=== PATIENT | female | born 1965 | race Caucasian/White ===

== ENCOUNTER 2021-12-10 16:12 | Emergency (ER) | payer OTHER, SELFPAY ==
[2021-12-10 16:16] VITALS: BP 162/82; PULSE 117; RESP 16; TEMP 36.8; O2SAT 98
--- NOTE | 2021-12-10 16:49 | ED.GENADUL_ITS ---
Discharge Plan Disposition Patient Disposition: HOME Condition: Stable Discharge Details Clinical Impression: Mastitis of right breast unrelated to of Primary Care Provider: Unknown,Unknown ED Provider: Fatou Gan Home Meds and New Rx's Prescriptions: New clindamycin HCl 150 mg capsule 450 mg PO TID 7 Days Qty: 63 0RF No Action amoxicillin-pot clavulanate [Augmentin] 875-125 mg Tablet 1 tab PO BID Fish Oil Capsule 1 cap PO DAILY Metamucil 3.4 gram/5.4 gram Powder PO PRN Discharge Instructions Instructions: Mastitis (ED) Additional Instructions: Apply warm compresses approximately 3 times daily. Take the antibiotics as directed. Finish the Augmentin you were previously prescribed. Please take the antibiotics with yogurt or probiotic. Please discuss additional imaging and testing with your [employer] [facility]. Please call the phone number listed on the ultrasound order to schedule an appointment. Follow up with primary care provider in 3-5 days. Return to ED sooner if any worsening or concerns. Increase oral fluids. Please take Tylenol or Ibuprofen with food every 4-6 hours as needed for pain and swelling. Medical Decision Making 56-year-old female presents to the ER with a chief complaint of her right breast infection. Patient noticed symptoms which began a week ago Wednesday. She was seen at urgent care on and was prescribed Augmentin. She has approximately 2 days left of the antibiotic. Per patient report symptoms have worsened over the last 2 days. Redness has spread. She denies any other associated symptoms. She is allergic to sulfa and beet pollen, past medical history includes mastitis of the same breast. Surgical history includes cholecystectomy tonsillectomy. Area of erythema marked erythematous approximately 15 cm x 9 cm. There is a couple areas of fluctuance patient is requesting to be drained. I am hesitant to do an incision and drainage or needle aspiration due to the swelling which is around the areolar area. Outpatient ultrasound ordered to be done within 48 hours with follow-up with [employer] or PCP. Will instruct patient to continue the Augmentin and to give clindamycin 450 mg here in the department. ReSound POCUS exam attempted to determine fluid collection. No obvious fluid collection noted. I did discuss risks and benefits of I&D, at this time after shared decision-making patient will call her [employer] and follow-up as directed. Patient placed on clindamycin 450 mg 3 times daily discussed home care, verbalized understanding. Medical Records Medical records reviewed: Yes I reviewed the patient's medical records. HPI General Mode of arrival: ambulatory . Date/Time Provider Initiated Documentation: 12/10/21 16:15 . Limitations to Documentation: no limitations . Information obtained by: patient, RN notes reviewed and old records reviewed . HPI Narrative: 56-year-old female presents to the ER with a chief complaint of her right breast infection. Patient noticed symptoms which began a week ago Wednesday. She was seen at urgent care on and was prescribed Augmentin. She has approximately 2 days left of the antibiotic. Per patient report symptoms have worsened over the last 2 days. Redness has spread. She denies any other associated symptoms. She is allergic to sulfa and beet pollen, past medical history includes mastitis of the same breast. Surgical history includes cholecystectomy tonsillectomy. Related Data Home Medications Medication Instructions Recorded Confirmed amoxicillin 875 mg-potassium 1 tab PO BID 12/10/21 12/10/21 clavulanate 125 mg tablet clindamycin HCl 150 mg capsule 450 mg PO TID 7 days #63 caps 12/10/21 omega-3 fatty acids 1 cap PO DAILY 12/10/21 12/10/21 psyllium husk 3.4 gram/5.4 gram PO PRN 12/10/21 oral powder (Metamucil) Previous Rx's Medication Instructions Recorded clindamycin HCl 150 mg capsule 450 mg PO TID 7 days #63 caps 12/10/21 Allergies Allergy/AdvReac Type Severity Reaction Status Date / Time bee pollen Allergy Unverified 12/10/21 16:21 Sulfa (Sulfonamide AdvReac Unverified 12/10/21 16:21 Antibiotics) General Stated Complaint: Cellulitis ASHWIN: 4 Review of Systems All systems reviewed & are unremarkable except as noted in HPI and below Constitutional Constitutional: Denies body ache(s) (reports joint pain from arthritis), Denies chills, Denies fever(s), Denies malaise and Denies night sweats Cardiovascular Cardiovascular: Denies chest pain and Denies dyspnea Respiratory Respiratory: Denies dyspnea Gastrointestinal Gastrointestinal: Denies abdominal pain, Denies diarrhea, Denies nausea and Denies vomiting Genitourinary Genitourinary: Reports nipple discharge Integumentary/Breasts Skin/Breast: Reports breast skin changes, Reports breast pain, Reports pruritus, Reports new lesions, Reports nipple discharge, Reports erythema and Reports skin pain PFSH All Active Problems (Updated 12/10/21 @ 18:53 by Fatou Gan NP) Mastitis of right breast unrelated to of (Acute) Social History Smoking/Tobacco Use Status: Current every day Tobacco Type: cigarettes Smoking risk assessment performed?: Yes Alcohol Intake: former Drug use: Occasionally Substance use type: marijuana Do you feel safe at home: Yes Do you feel safe in your relationship?: Yes Exam Chest Breast inspection: abnormal inspection of the breast (Multiple areas of possible fluctuant, erythema tenderness) right erythema, normal nipple, nipple discharge and retraction skin dimpling and abnormal contours Breast palpation: normal palpation of the axillae Chest/axillae images: 1. Approximately 10 cm in length by 7 cm in width area of erythema warmth tenderness. There is a area of skin dimpling approximately 3:00 from the areola. Patient does report nipple discharge none noted on my exam. No palpable lymphadenopathy to the axilla. Skin General skin exam: no rashes or lesions noted Lesions: no lesions Rashes: no rashes Course Vital Signs Vital signs: Vital Signs Temperature 36.8 C 12/10/21 16:16 Pulse 117 H 12/10/21 16:16 Respiratory Rate 16 12/10/21 16:16 Blood Pressure 162/82 H 12/10/21 16:16 Pulse Oximetry 98 12/10/21 16:16 Temperature 36.8 C 12/10/21 16:16 Temperature Source Skin 12/10/21 16:16 Pulse 117 H 12/10/21 16:16 Respiratory Rate 16 12/10/21 16:16 Respiratory Effort 12/10/21 16:23 Blood Pressure 162/82 H 12/10/21 16:16 Blood Pressure Position Sitting 12/10/21 16:16 Pulse Oximetry 98 12/10/21 16:16 Oxygen Delivery Method Room Air 12/10/21 16:16 Oxygen Flow Rate 0 12/10/21 16:16 Pain Level 0 12/10/21 16:16
[2021-12-10] MEDS: Clindamycin 150 MG CAP 450 MG PO (17:09)
[2021-12-10] MEDS: Clindamycin 150 MG CAP, 12 CAPS/BTL 450 MG PO (19:08)
== END 2021-12-10 18:58 | disposition home or self-care (01) ==
PROVIDERS: Emergency Provider Registered Nurse Emergency
DX: N61.0 Mastitis without abscess (principal)
CPT/HCPCS: 99283

== ENCOUNTER 2021-12-19 12:37 | Outpatient (REF) | payer OTHER, SELFPAY | END 2021-12-19 12:38 | disposition home or self-care (01) | LOC: LBN 12:37 | PROVIDERS: Visit Provider Physical Therapy Assistant | DX: N61.1 Abscess of the breast and nipple (principal) | CPT/HCPCS: 87070; 87205 ==

== ENCOUNTER → 2022-04-10 00:39 | Outpatient (CLI) | payer OTHER, SELFPAY ==
--- NOTE | 2022-04-10 07:45 | DI.MAMMO_ITS ---
Exam(s) US BREAST RT COMPLETE MG MAMMO SCREENING 60 MIN DUR EXAM: MG MAMMO SCREENING 60 MIN DUR and U/S breast RT complete CLINICAL HISTORY: breast cancer screening,Z12.39,H/O ABSCESSES,. TECHNIQUE: Craniocaudal and mediolateral oblique Full Field Digital Mammography views with Computer Aided Diagnosis followed by Tomosynthesis and right breast ultrasound. COMPARISON: Comparison is made with prior examinations. FINDINGS: Mammography/Tomosynthesis: Masses/Architectural Distortion: None seen. Microcalcifictions: No suspicious pleomorphic-type are seen. Skin Thickening/Nipple Retraction: None. Complete right breast US: Echotexture: Normal appearance of the glandular tissue. Shadowing: No suspicious foci. Cyst: None. Solid lesions: There is a benign-appearing lymph node in the right axilla measuring 3.5 cm. No sonog raphically suspicious solid masses are seen. Ductal dilation: None. IMPRESSION: 1. No evidence of malignancy is noted. 2. Unless there is more urgent need, follow-up screening mammography is recommended, as per [employer] guidelines. 3. The findings were discussed with the patient on the date of the examination. BI-RADS Category 1 - Negative Breast Density - Category C - Heterogeneously dense Breast density Category C or D implies that the patient has dense breast tissue. Dense breast tissue can make it harder to find cancer on a mammogram. Dense breast tissue is also associated with an incr eased risk of breast cancer. This information about the result of the mammogram report was provided to the patient to raise their awareness. Use this report when you speak with the patient about their risks for breast cancer, which includes their family history. At that time, you may recommend additional screening tests (Ultrasoun d or MRI) as these tests may add significant information. A negative radiographic report should not delay biopsy if a dominant or clinically suspicious mass is present. Up to ten percent of cancers are not identified on mammography. A negative report may reinforce clinical impression. Adenosis and dense breasts may obscure an underlying neoplasm. False positive reports average 6 to 10%. Patient will receive a letter notifying them of these results.
== END ==
PROVIDERS: Visit Provider Surgery
DX: N61.1 Abscess of the breast and nipple (principal); Z12.31 Encounter for screening mammogram for malignant neoplasm of breast
CPT/HCPCS: 76642; 77063; 77067

== ENCOUNTER 2022-04-15 04:07 | Outpatient (CLI) | payer OTHER, SELFPAY ==
[2022-04-15 10:14] LABS: Abs Immature Grans 0.02 10^3/uL (0.0-0.06); Absolute Basophil Count 0.12 10^3/uL (0.0-0.2); Absolute Eosinophil Count 0.43 10^3/uL (0.0-0.7); Absolute Lymphocyte Count 2.55 10^3/uL (1.2-3.4); Absolute Monocyte Count 0.48 10^3/uL (0.1-0.8); Absolute Neutrophil Count 3.72 10^3/uL (1.2-6.7); Basophils % 1.6; Eosinophils % 5.9; HCT 42.3 % (36.0-46.0); HGB 13.8 g/dL (11.2-15.7); Immature Grans % 0.3; Lymphocytes % 34.8; MCH 29.1 pg (27.0-33.0); MCHC 32.6 % (32.0-36.0); MCV 89 fL (80-95); MPV 9.3 fL (8.0-11.0); Monocytes % 6.6; Neutrophils % 50.8; Platelet Count 274 10^3/uL (130-400); RBC 4.75 10^6/uL (3.93-5.22); RDW 13.1 % (11.7-14.6); RDW-SD 42.7 fL; WBC 7.32 10^3/uL (4.4-10.8)
[2022-04-15 10:21] LABS: Hemoglobin A1C 6.1 % (<5.7)
[2022-04-15 10:48] LABS: ALT 16 U/L (14-59); AST 12 U/L (15-37); Albumin 3.2 g/dL (3.4-5.0); Alkaline Phosphatase 85 U/L (46-116); Anion Gap 9.7 mmol/L (3-11); BUN 11 mg/dL (7-18); Bilirubin, Total 0.3 mg/dL (0.2-1.0); CO2 26.3 mmol/L (21.0-32.0); CREATININE 0.9 mg/dL (0.55-1.02); Calcium 9.6 mg/dL (8.5-10.1); Calculated LDL 147 mg/dL (<100); Chloride 105 mmol/L (98-107); Cholesterol 223 mg/dL (<200); Glucose 98 mg/dL (74-106); HDL Cholesterol 45 mg/dL (40-60); Sodium 141 mmol/L (136-145); TSH (W/Ref FT4) 0.91 uIU/mL (0.36-3.74); Total Protein 7.9 g/dL (6.4-8.2); Triglyceride 156 mg/dL (<150)
== END 2022-04-15 04:08 | disposition home or self-care (01) ==
LOC: LBO 04:07
PROVIDERS: Visit Provider Surgery
DX: Z13.89 Encounter for screening for other disorder (principal); N61.1 Abscess of the breast and nipple
CPT/HCPCS: 36415; 80053; 80061; 83036; 84443; 85025